=== PATIENT | male | born 1945 | race Caucasian/White ===

== ENCOUNTER 2018-08-07 07:22 | Day surgery (SDC) | payer MEDICARE, OTHER ==
--- NOTE | 2018-08-07 06:27 | History and Physical - [place] ---
CHIEF COMPLAINT/HISTORY OF CHIEF COMPLAINT: This patient presents with a history of an intractable thoracic and lumbar radiculopathy. Due to the failure of all therapies a spinal cord stimulator trial was conducted on with 75+% pain control. Due to the failure of all therapy and the success of the trial the patient presents today for implantation of a permanent system. PAST MEDICAL HISTORY: Hypertension and reflux esophagitis. PAST SURGICAL HISTORY: Foot surgery and ankle fusion. MEDICATIONS ON ADMISSION: List to be provided. ALLERGIES: PENICILLIN AND BACTRIM. FAMILY/PSYCHOSOCIAL HISTORY: Social history - Noncontributory. Family history - Coronary artery disease, cardiac, hypertension and cancer. SYSTEMS REVIEW: The patient is appropriate in no acute distress. The remainder of the systems reviews is positive for glasses, dentures, blood pressure, reflux. and degenerative arthritis. PHYSICAL EXAMINATION: Height is 6'2", weight is 300 pounds. No vital signs. HEENT: Within normal limits. LUNGS: Clear. HEART: Regular rate and rhythm. ABDOMEN: Nontender. MUSCULOSKELETAL: Examination of the musculoskeletal system shows a mid to upper thoracic component extending all the way into the low back. There are radicular elements across the chest wall intercostals right and extending along the lumbar nerve roots with the lumbar radiculopathy mostly posterior legs. Motor and sensory field evaluation is intact. No specific motor weakness. Ambulation - No assistive device utilized. NEUROLOGIC: Cranial nerves are intact. IMPRESSION: THORACIC AND LUMBAR RADICULOPATHY, ICD-10 CODE M54.14 AND M54.16. PLAN: Due to the failure of all therapy and the success of a stimulator trial, the patient presents today for implantation of a permanent system. The potential risks, side effects, and complications have all been carefully reviewed and discussed. The procedure will be considered outpatient although an overnight stay will be evaluated. JOB NUMBER: [id number] MTDD
[~2018-08-07 07:22] MED LIST: ACETAMINOPHEN 1,000 MG/100 ML BTL IV ONE; CLINDAMYCIN 600MG/50ML PREMIX 600 MG/50 ML BAG IVPB ONE; FAMOTIDINE 20MG TABLET PO ONE; MECLIZINE 25 MG TABLET PO ONE; METOCLOPRAMIDE 10 MG TABLET PO ONE
[2018-08-07] MEDS ORDERED: PROPOFOL 10 MG/ML VIAL IV ONE (07:23)
[2018-08-07] MEDS ORDERED: MIDAZOLAM HCL 2MG/2ML VIAL IV ONE (07:23)
[2018-08-07] MEDS ORDERED: CLINDAMYCIN (PEDIATRIC DOSING) 150 MG/ML VIAL IVPB ONE (07:23)
[2018-08-07] MEDS ORDERED: BUPIVACAINE 0.5% W/EPI MPF 30 ML VIAL IVP ONE (07:23)
[2018-08-07] MEDS ORDERED: FENTANYL PF 100MCG/2ML VIAL IV ONE (07:23)
[2018-08-07] MEDS ORDERED: LIDOCAINE 2% MDV (20MG/ML) 20ML VIAL IV ONE (07:23)
[2018-08-07] MEDS ORDERED: HYDROMORPHONE HCL 2 MG/ML VIAL IV ONE (07:23)
[2018-08-07] MEDS ORDERED: LIDOCAINE 1% W/EPI 1:200,000 MPF 30ML SQ ONE (07:23)
--- NOTE | 2018-08-08 17:12 | Operative Note ---
DATE OF SURGERY: 08/07/18 PREOPERATIVE DIAGNOSES: THORACIC AND LUMBAR RADICULOPATHY, ICD-10 CODE = M54.14 AND M54.16. OPERATION: 1. FLUOROSCOPICALLY-GUIDED LEFT EPIDURAL ACCESS T10-11. PLACEMENT OF SPINAL CORD STIMULATOR LEAD 1, [employer] 16 WITH 6 ELECTRODES POSITIONED RIGHT OF THE MIDLINE T1. 2. FLUOROSCOPICALLY-GUIDED EPIDURAL ACCESS LEFT T11-12. PLACEMENT OF SPINAL CORD STIMULATOR LEAD 2, [employer] 16 WITH 6 ELECTRODES POSITIONED RIGHT LATERAL TO LEAD 1 AT T1. 3. COMPLEX PROGRAMMING OF LEAD 1 OVER 20 MINUTES FOLLOWED BY COMPLEX PROGRAMMING OF LEAD 2 OVER 20 MINUTES. 4. INCISION, SUBCUTANEOUS DISSECTION, AND ANCHORING OF LEAD 1 AND LEAD 2 TO SUPRASPINOUS FASCIA WITH [employer] ANCHORING. 5. INCISION, SUBCUTANEOUS DISSECTION, AND CREATION OF SUBCUTANEOUS POUCH RIGHT FLANK GENERATOR IDENTIFIED [employer] PROGRAMMABLE RECHARGEABLE WAVEWRITER. 6. TUNNELING BETWEEN LEAD POUCH. PLACEMENT OF EXTERNAL LEAD 1 AND LEAD 2 INTO GENERATOR POUCH, EACH LEAD INTERFACED TO GENERATOR. 7. PLACEMENT OF GENERATOR INTO POUCH SECURED TO POSTERIOR FASCIA WITH NONABSORBABLE SUTURE. PLACEMENT OF LEADS INTO POUCH. CLOSURE OF BOTH INCISIONS STRATAFIX, 2-0 FASCIA, 3-0 SKIN. DERMABOND CLOSURE. 8. COMPLEX RECOVERY ROOM PROGRAMMING INTERNAL GENERATOR, HOME USE, TWO STIMULATORS 20 MINUTES. . SURGEON: MALATHI LONG D.O. ANESTHESIA: LOCAL SEDATION. ANESTHESIA PROVIDER: EAMON MCLEOD CRNA INDICATION: This patient presents with a history of intractable lumbar radiculopathy and thoracic radiculopathy. Due to the failure of all therapies, a spinal cord stimulator trial was conducted with 75 to 85% pain control. Due to the failure of all therapies and the success of the trial, he is here for implantation of a permanent system. PROCEDURE: Intravenous line, vital sign monitoring, IV sedation by Anesthesia, Eamon Mcleod. Patient position prone. Sterile prep, sterile technique. From the left, the epidural interspace at 10-11, 11-12 were marked, infiltrated. Using two separate curved axis Epimed needles with [id number], the space was accessed. At 10-11, spinal cord stimulator lead 1, a [employer] Infinion 16 with 6 electrodes positioned right of the midline T1. With the epidural access at 11-12, spinal cord stimulator lead 2, [employer] Infinion 16 with 6 electrodes positioned right of the midline lateral to lead 1 also at T1. Complex programming of lead 1 over 20 minutes followed by complex programming of lead 2 over 20 minutes resulting in complete patterns of stimulation across the back or along rib margins into the back and legs; patient indicating we had all the areas of his pain. He was given the option to implant, continue to program, or remove; he opted to implant. Questions repeated with the same response. He opted to continue. He was re-sedated. The skin below both needles infiltrated, incision made, and subcutaneous dissection was conducted to the supraspinous fascia. Each lead was then anchored to the supraspinous fascia with a [employer] [place]. At the right flank; a site picked by the patient for the generator, skin infiltrated, incision made, and subcutaneous dissection was conducted to form a pouch of suitable size for the generator identified as a [employer] Programmable Rechargeable WaveWriter. Antibiotic irrigation and Bovie for hemostasis. A tunneling tool was used to carry the leads into the generator pouch and then each lead interfaced to the generator. The generator was placed into the pouch, secured to the posterior fascia with nonabsorbable suture and then both incisions were closed using STRATAFIX suture, 2-0 fascia, 3-0 skin. Dermabond closure over the wounds. The patient was transported to the Recovery Room stable, no side- effects from the procedure or the sedation. When fully awake and alert, complex programming was then performed over 20 minutes re-establishing stimulation and pain control to all of the appropriate areas. He was requesting to go home. DISCHARGE INSTRUCTIONS: 1. Sites will remain dry. He may shower but not sit in water. 2. Standard medications resumed including Levaquin, the antibiotic, 500 mg once a day for 14 days or substitute Cipro 500 twice a day. 3. All other medications resumed. He will keep his activities low until the office contacts him in the next 24-48 hours to set up an appointment in 7-10 days to see the sites. Through that period of time, he should keep his activities controlled. He will be seen in the office. All other instructions provided, numbers to contact with problems given. He was then discharged. cc: Dr. Ha JOB NUMBER:[id number] [facility]
--- NOTE | 2018-08-11 12:38 | RADIOLOGY REPORT ---
EXAM: SPINE, 1 VIEW HISTORY: POST SPINAL CANAL STIMULATOR IMPLANT. TECHNIQUE: Single AP portable view of the thoracic spine. COMPARISON: None. FINDINGS: There are two wires that extend up to the approximate level of the T1 vertebra consistent with spinal stimulator wires. Thoracic curve to the right. Pacemaker battery pack right upper chest with the electrodes leads extending into the region of the right atrium and right ventricle. IMPRESSION: THE SPINAL STIMULATOR WIRES EXTEND UP TO THE T1 LEVEL. JOB NUMBER: [id number] MTDD
== END 2018-08-07 11:15 | disposition home or self-care (01) ==
LOC: SUR 07:22
PROVIDERS: ATTEND Pain Medicine Interventional Pain Medicine
DX: M54.14 Radiculopathy, thoracic region (principal); M54.16 Radiculopathy, lumbar region; I10 Essential (primary) hypertension; E78.00 Pure hypercholesterolemia, unspecified; I25.10 Atherosclerotic heart disease of native coronary artery without angina pectoris; Z95.5 Presence of coronary angioplasty implant and graft; M06.9 Rheumatoid arthritis, unspecified; Z86.73 Personal history of transient ischemic attack (TIA), and cerebral infarction without residual deficits
CPT/HCPCS: 63655; 63685; 00630; 95972; 85002; 72020; J3010; J1170; C1820; C1883